=== PATIENT | male | born 1990 | race Caucasian/White ===

== ENCOUNTER 2020-07-29 22:08 | Emergency (ER) | payer SELFPAY ==
[2020-07-29] MEDS ORDERED: ONDANSETRON HCL INJ/PF 4 MG/2 ML SDV IV ONE (22:28)
[2020-07-29] MEDS ORDERED: NORMAL SALINE 1000 ML 1,000 ML IV ONE (22:29)
--- NOTE | 2020-07-29 22:30 | ER Document Report ---
ED General - General Chief Complaint: Abdominal Pain Stated Complaint: ABDOMINAL PAIN Time Seen by Provider: 07/29/20 22:20 Notes: Patient is a 30-year-old male that comes emergency department for chief complaint of abdominal pain. He comes by EMS. EMS reports that the brother actually called EMS after the patient was found acting strangely, the brother states that he believes the patient is "using Simona". Patient denies vomiting, fever, chest pain, headache, or any other complaints other than some generalized abdominal pain. He denies any daily medications, denies alcohol, smoking,, denies any surgeries. He does not answer when I asked him if he is using recreational drugs. Past Medical History - General Information source: Patient, Emergency Med Personnel - Social History Smoking Status: Unknown if Ever Smoked Lives with: Family Family History: Reviewed & Not Pertinent - Immunizations Immunizations up to date: Yes Hx Diphtheria, Pertussis, Tetanus Vaccination: Yes Review of Systems - Review of Systems Constitutional: No symptoms reported EENT: No symptoms reported Cardiovascular: No symptoms reported Respiratory: No symptoms reported Gastrointestinal: See HPI Genitourinary: No symptoms reported Male Genitourinary: No symptoms reported Musculoskeletal: No symptoms reported Skin: No symptoms reported Hematologic/Lymphatic: No symptoms reported Neurological/Psychological: See HPI Physical Exam - Notes Notes: GENERAL: Patient is alert, cooperative HEAD: Normocephalic, atraumatic. EYES: Very dilated pupils, equal, reactive, EOMs intact ENT: Oral mucosa moist, tongue midline. Oropharynx unremarkable. Airway patent. LUNGS: Clear to auscultation bilaterally, no wheezes, rales, or rhonchi. No respiratory distress. Non-tender chest wall. HEART: Regular rate and rhythm. No murmur ABDOMEN: Soft, non-tender. Non-distended. EXTREMITIES: Moves all 4 extremities spontaneously. No edema, normal radial and dorsalis pedis pulses bilaterally. No cyanosis. BACK: no cervical, thoracic, lumbar midline tenderness. No saddle anesthesia, normal distal neurovascular exam. Moves all extremities in full range of motion. NEUROLOGICAL: Alert and oriented x3. Normal speech. Cranial nerves II through XII grossly intact. Strength 5/5 in all extremities. PSYCH: Slightly anxious mood SKIN: Warm, dry, normal turgor. No rashes or lesions noted. Course - Re-evaluation Re-evalutation: 07/29/20 22:30 Patient is awake and cooperative, however he is frequently groaning, he has very dilated pupils, he looks around uncomfortably and nervously. Patient does appe ar to be under the influence of a recreational substance, reportedly "Simona" per his brother. Giving IV fluids, work-up pending, patient will be monitored. Unfortunately when nursing went back to check on patient and initiate treatment work-up patient had left the room, staff otherwise reported that patient was seated leaving through the ambulance bay. Unfortunately we looked around but were unable to find him. [employer] was called but unfortunately so far we have not been able to locate the patient. Discharge - Discharge Clinical Impression: Abdominal pain Qualifiers: Abdominal location: generalized Qualified Code(s): R10.84 - Generalized abdominal pain Disposition: ELOPED
--- NOTE | 2020-07-31 10:05 | EKG REPORT ---
SEVERITY:- ABNORMAL ECG - SINUS RHYTHM INCOMPLETE RIGHT BUNDLE BRANCH BLOCK : Confirmed by: Mirian Liriano MD 31-Jul-2020 10:04:49
== END 2020-07-29 23:00 | disposition left against medical advice (07) ==
LOC: ER 22:08
DX: R10.84 Generalized abdominal pain (principal); H57.04 Mydriasis; Z53.20 Procedure and treatment not carried out because of patient's decision for unspecified reasons
CPT/HCPCS: 93005; 93010; 99281

== ENCOUNTER 2020-07-31 08:19 | Emergency (ER) | payer SELFPAY ==
[2020-07-31 08:47] LABS: ABSOLUTE EOSINOPHILS # (AUTO) 0.1 10^3/uL (0.0-0.6); ABSOLUTE LYMPHOCYTES (AUTO) 1.2 10^3/uL (0.5-4.7); ABSOLUTE MONOCYTES (AUTO) 0.5 10^3/uL (0.1-1.4); ABSOLUTE NEUT (AUTO) 5.3 10^3/uL (1.7-8.2); BASOPHILS % (AUTO) 0.3 % (0-2); EOSINOPHILS % (AUTO) 0.9 % (0-6); HEMATOCRIT 42.8 % (37.9-51.0); HEMOGLOBIN 15.1 g/dL (13.5-17.0); LYMPHOCYTES % (AUTO) 16.8 % (13-45); MEAN CORPUSCULAR HEMOGLOBIN 31.9 pg (27.0-33.4); MEAN CORPUSCULAR HGB CONC 35.3 g/dL (32.0-36.0); MEAN CORPUSCULAR VOLUME 90 fl (80-97); MONOCYTES % (AUTO) 6.5 % (3-13); PLATELET COUNT 185 10^3/uL (150-450); RED BLOOD COUNT 4.74 10^6/uL (4.35-5.55); RED CELL DISTRIBUTION WIDTH 13.3 % (11.5-14.0); SEGMENTED NEUTROPHILS % (AUTO) 75.5 % (42-78); TOTAL CELLS COUNTED % (AUTO) 100 %; WHITE BLOOD COUNT 7.1 10^3/uL (4.0-10.5)
[2020-07-31 09:05] LABS: ALBUMIN 4.4 g/dL (3.5-5.0); ALKALINE PHOSPHATASE 61 U/L (38-126); ANION GAP 13 (5-19); ASPARTATE AMINO TRANSFERASE 74 U/L (17-59); BILIRUBIN,DIRECT 0.3 mg/dL (0.0-0.4); BILIRUBIN,TOTAL 0.7 mg/dL (0.2-1.3); BLOOD UREA NITROGEN 6 mg/dL (7-20); CALCIUM 9.3 mg/dL (8.4-10.2); CARBON DIOXIDE 25 mmol/L (22-30); CHLORIDE 100 mmol/L (98-107); GLUCOSE 99 mg/dL (75-110); TOTAL PROTEIN 6.8 g/dL (6.3-8.2)
[2020-07-31 09:06] LABS: ALCOHOL < 10 mg/dL (NONE DETECTED)
--- NOTE | 2020-07-31 09:06 | ER Document Report ---
ED General - General Chief Complaint: Altered Mental Status Stated Complaint: ALTERED MENTAL STATUS Time Seen by Provider: 07/31/20 08:40 Primary Care Provider: [facility] [Provider Group] - Follow up as needed ZIGGY LOPEZ DO [NO LOCAL MD] - Follow up in 3-5 days Mode of Arrival: Medic Information source: Patient - HPI Notes: 30-year-old male presents to the emergency room via EMS for AMS. Patient was found by local law enforcement outside, naked, laying face down and disorientated in the grass. He was incoherent when EMS came on arrival. Patient was administered 0.5 mg of Narcan without any improvement in his mental status. At the same time that EMS was at the scene, patient's brother filed a missing persons report and was concerned and speculated the patient had been doing some form of Simona. The brother states that the patient had rode a bike from [place] to [place] several days prior to arrival. Patient is complaining of generalized abdominal pain, he states he is having substernal chest pain, shortness of breath, nausea vomiting diarrhea that is become progressively worse over the last month, patient is unable to say the year, the month, who the president is but he is aware that he is at [facility]. Patient is a poor historian, when asked about any medical history he keeps saying male, denies any exposure to COVID, testing positive for COVID or having any cover testing done last 2 weeks. Patient denies any illicit drug use besides marijuana. Prior to coming to see patient, I did find this patient in the hallway naked with a sheet wrapped around him stating that he wanted to leave. Patient was instructed back to the room with guidance. Patient denies any fevers chills, abdominal pain, bowel or bladder dysfunction, saddle anesthesia, numbness or tingling down arms or legs. When asked him if he had hit his head or had fallen, patient states that he cannot remember he does not know how he got here and he does not remember the night. MEDICATIONS: I agree with the patient medications as charted by the RN. ALLERGIES: I agree with the allergies as charted by the RN. PAST MEDICAL HISTORY/PAST SURGICAL HISTORY: Reviewed and agree as charted by RN. SOCIAL HISTORY: Reviewed and agree as charted by RN. FAMILY HISTORY: No significant familial comorbid conditions directly related to patient complaint EXAM: Reviewed vital signs as charted by RN. PHYSICAL EXAMINATION:reviewed vital signs by RN GENERAL: Well-appearing, well-nourished and in no acute distress. HEAD: Atraumatic, normocephalic. EYES: Pupils equal round and reactive to light, extraocular movements intact, sclera anicteric, conjunctiva are normal. ENT: Nares patent, oropharynx clear without exudates. Moist mucous membranes. NECK: Normal range of motion, supple without lymphadenopathy LUNGS: Breath sounds clear to auscultation bilaterally and equal. No wheezes rales or rhonchi. HEART: Regular rate and rhythm without murmurs ABDOMEN: Soft, nontender, nondistended abdomen. No guarding, no rebound. No masses appreciated. Musculoskeletal: Normal range of motion, no pitting or edema. No cyanosis. NEUROLOGICAL: Cranial nerves grossly intact. Normal speech, normal gait. Normal sensory, motor exams PSYCH: Normal mood, normal affect. SKIN: Warm, Dry, normal turgor, no rashes or lesions noted. Past Medical History - General Information source: Patient - Social History Smoking Status: Unknown if Ever Smoked Family History: Reviewed & Not Pertinent - Immunizations Immunizations up to date: Yes Hx Diphtheria, Pertussis, Tetanus Vaccination: Yes Review of Systems - Review of Systems Constitutional: See HPI EENT: No symptoms reported Cardiovascular: No symptoms reported Respiratory: No symptoms reported Gastrointestinal: No symptoms reported Genitourinary: No symptoms reported Male Genitourinary: No symptoms reported Musculoskeletal: No symptoms reported Skin: No symptoms reported Hematologic/Lymphatic: No symptoms reported Neurological/Psychological: See HPI Physical Exam - Vital signs Vitals: Resp 15 07/31/20 08:28 Course - Re-evaluation Re-evalutation: 07/31/20 09:35 Afebrile vital stable and in no distress. CBC negative for leukocytosis, CMP negative for hepatic or renal dysfunction. Magnesium normal. Troponin less than 0.012. EKG heart rate 68, shows incomplete bundle branch, P axis 37, QRS [place] II, T [place] XIII. No STEMI. No ST segment elevations or changes. CK 1252, CRP 15.2, creatinine BUN normal. Patient given a liter of fluids. CT head negative for any acute findings per radiology. Urinalysis unremarkable, urine drug screen positive for marijuana only. 1200-nurse stated patient is c ompletely awake alert and orientated. Patient states he is feeling much better and did admit to using Simona. Due to patient's CK being elevated will give another liter of fluids. 1530- consulted with Dr. Santos, ER supervising attending that stated that since his renal function is normal, he can be discharged home. Advised to follow-up with primary care provider within the next 24 to 40 hours. Avoid any illicit drug use, avoid coffee or soda that might cause him to diurese more. Patient will remove the splint. Agree with plan of care. After performing a Medical Screening Examination, I estimate there is LOW risk for ACUTE GLAUCOMA, TEMPORAL ARTERITIS, MENINGITIS, INCRANIAL HEMORRHAGE, or ISCHEMIC STROKE thus I consider the discharge disposition reasonable. I have reevaluated this patient multiple times and no significant life threatening changes are noted. The patient and I have discussed the diagnosis and risks, and we agree with discharging home with close follow-up with the understanding that symptoms and presentations can change. We also discussed returning to the Emergency Department immediately if new or worsening symptoms occur. We have discussed the symptoms which are most concerning (e.g., changing or worsening symptoms, new numbness or weakness, vomiting, fever) that necessitate immediate return. - Vital Signs Vital signs: Temp Pulse Resp BP Pulse Ox 98.8 F 95 18 165/94 H 99 07/31/20 16:15 07/31/20 16:15 07/31/20 16:15 07/31/20 16:15 07/31/20 16:15 - Laboratory Result Diagrams: 07/31/20 08:29 07/31/20 08:29 Laboratory results interpreted by me: 07/31/20 07/31/20 07/31/20 08:29 08:29 09:12 BUN 6 L AST 74 H Creatine Kinase 1252 H C-Reactive Protein 15.2 H Urine Ketones 20 H 07/31/20 13:30 BUN AST Creatine Kinase 1008 H C-Reactive Protein 13.8 H Urine Ketones - EKG Interpretation by Me EKG shows normal: Sinus rhythm Additional EKG results interpreted by me: 07/31/20 17:20 EKG heart rate 68, shows incomplete bundle branch, P axis 37, QRS [place] II, T [place] XIII. No STEMI. No ST segment elevations or changes EKG Discharge - Discharge Clinical Impression: Dehydration, Illicit drug use Condition: Stable Disposition: HOME, SELF-CARE Instructions: Dehydration (OM) Additional Instructions: Your brought in today because you are found on the side of the road, EMS brought you in in your disorientated. CT of your head was normal. You is received 2 L of IV fluids to help with her dehydration. It is advised that you please follow-up with your primary care provider within the next 24 to 48 hours. Please avoid any illicit drug use. You were consulted by mental health today. Referrals: [facility] [Provider Group] - Follow up as needed ZIGGY LOPEZ DO [NO LOCAL MD] - Follow up in 3-5 days
[2020-07-31 09:20] LABS: C-REACTIVE PROTEIN 15.2 mg/L (<10.0)
[2020-07-31 09:32] LABS: APPEARANCE,URINE CLEAR; BILIRUBIN,URINE NEGATIVE (NEGATIVE); COLOR,URINE YELLOW; GLUCOSE, URINE NEGATIVE (NEGATIVE); KETONES,URINE 20 mg/dL (NEGATIVE); LEUKOCYTE ESTERASE,URINE NEGATIVE (NEGATIVE); NITRITE,URINE NEGATIVE (NEGATIVE); PROTEIN,URINE NEGATIVE (NEGATIVE); URINE SPECIFIC GRAVITY 1.004; UROBILINOGEN,URINE NEGATIVE mg/dL (<2.0)
[2020-07-31] MEDS ORDERED: NICOTINE 14 MG/24 HR PATCH.TD24 TD ONE (09:34)
[2020-07-31] MEDS ORDERED: NORMAL SALINE 1000 ML 1,000 ML IV ONE ×2 (09:35→11:44)
--- NOTE | 2020-07-31 09:41 | RADIOLOGY REPORT (SQ) ---
EXAM DESCRIPTION: CHEST SINGLE VIEW IMAGES COMPLETED DATE/TIME: 07/31/2020 9:32 am REASON FOR STUDY: ams COMPARISON: None. EXAM PARAMETERS: NUMBER OF VIEWS: One view. TECHNIQUE: Single frontal radiographic view of the chest acquired. RADIATION DOSE: NA LIMITATIONS: None. FINDINGS: LUNGS AND PLEURA: No opacities, masses or pneumothorax. No pleural effusion. MEDIASTINUM AND HILAR STRUCTURES: No masses. Contour normal. HEART AND VASCULAR STRUCTURES: Heart normal in size. Normal vasculature. BONES: No acute findings. HARDWARE: None in the chest. OTHER: No other significant finding. IMPRESSION: NO ACUTE RADIOGRAPHIC FINDING IN THE CHEST. TECHNICAL DOCUMENTATION: JOB ID: [id number] 2010 [employer]- All Rights Reserved Reading location - IP/workstation name: [email or web address]
--- NOTE | 2020-07-31 09:41 | RADIOLOGY REPORT (SQ) ---
EXAM DESCRIPTION: CT HEAD WITHOUT IMAGES COMPLETED DATE/TIME: 07/31/2020 9:29 am REASON FOR STUDY: AMS, found naked by police, unsure if head trauma COMPARISON: None. TECHNIQUE: Axial images acquired through the brain without intravenous contrast. Images reviewed wi th bone, brain and subdural windows. Additional sagittal and coronal reconstructions were generated. Images stored on PACS. All CT scanners at this facility use dose modulation, iterative reconstruction, and/or weight based d osing when appropriate to reduce radiation dose to as low as reasonably achievable (ALARA). [facility]: Dose Right [facility]: CareDose [facility]: Dose Right [facility]: Teradose 4D [facility]: Smart Celletra RADIATION DOSE: CT Rad equipment meets quality standard of care and radiation dose reduction techniq ues were employed. CTDIvol: 53.2 mGy. DLP: 1070 mGy-cm. mGy. LIMITATIONS: None. FINDINGS: VENTRICLES: Normal size and contour. CEREBRUM: No masses. No hemorrhage. No midline shift. No evidence for acute infarction. Normal gra y/white matter differentiation. No areas of low density in the white matter. CEREBELLUM: No masses. No hemorrhage. No alteration of density. No evidence for acute infarction. EXTRAAXIAL SPACES: No fluid collections. No masses. ORBITS AND GLOBE: No intra- or extraconal masses. Normal contour of globe without masses. CALVARIUM: No fracture. PARANASAL SINUSES: No fluid or mucosal thickening. SOFT TISSUES: No mass or hematoma. OTHER: No other significant finding. IMPRESSION: NORMAL BRAIN CT WITHOUT CONTRAST. EVIDENCE OF ACUTE STROKE: NO. COMMENT: Quality ID # [id number]: Final reports with documentation of one or more dose reduction techniques (e.g., Automated exposure control, adjustment of the mA and/or kV according to patient size, use of iterative reconstruction technique) TECHNICAL DOCUMENTATION: JOB ID: [id number] 2010 [employer]- All Rights Reserved Reading location - IP/workstation name: [email or web address]
[2020-07-31 09:48] LABS: URINE AMPHETAMINES SCREEN NEGATIVE; URINE BARBITURATES SCREEN NEGATIVE; URINE BENZODIAZEPINES SCREEN NEGATIVE; URINE COCAINE SCREEN NEGATIVE; URINE METHADONE SCREEN NEGATIVE; URINE PHENCYCLIDINE SCREEN NEGATIVE
[2020-07-31 09:49] LABS: URINE MARIJUANA (THC) SCREEN UNCONFIRMED POSITIVE
[2020-07-31 14:27] LABS: C-REACTIVE PROTEIN 13.8 mg/L (<10.0)
[2020-07-31 16:16] VITALS: BP 165/94
--- NOTE | 2020-07-31 18:55 | PSYCHOLOGICAL NOTE ---
Psych Note - Psych Note Date seen by psych provider: 07/31/20 Time seen by psych provider: 16:16 - Went to evaluate at 1616. Psych Note: Patient presented to the emergency department this morning via EMS after a witness called and law enforcement responded to a person laying naked outside. Law enforcement found patient lying on the ground, disoriented, in and out of consciousness, Narcan utilized with little immediate improvement. Law Enforcement then got missing person call via patient's brother while patient was being sent to hospital via EMS. The brother stated patient was last seen at the house at 0330. Brother said patient did Simona (MDMA), has a history of suicidal ideation, but no current concerns regarding suicidal ideation. Reportedly patient rode his bike from [place], [place] to [place], [place]. He was unsteady but easily redirected per medical documentation. He knew he was at [facility]. Attending ED Physician noted no concerns for suicidal or homicidal ideation and it was felt patient's presentation was likely a result of being under the infl uence. Urine Drug Screen was positive for cannabis. Simona or MDMA is not tested for. It does cause severe dehydration which according to patient's lab work suggests. He was administered fluids. At 1616 went to evaluate patient and Attending ED Nurse stated patient was already discharged. Clinical Presentation: Simona (MDMA) intoxication- would cause dehydration as well Impression/Plan: Patient was discharged prior to [facility] doing evaluation.
== END 2020-07-31 16:15 | disposition home or self-care (01) ==
LOC: ER 08:19
DX: E86.0 Dehydration (principal); F19.10 Other psychoactive substance abuse, uncomplicated; R41.82 Altered mental status, unspecified; R10.84 Generalized abdominal pain
CPT/HCPCS: 99285; 96360; 96361; 36415; 80307 ×2; 82550; 83735; 85025; 86140; 80053; 81001; 84484; 71045; 70450; J7030

== ENCOUNTER 2020-08-01 02:21 | Emergency (ER) | payer SELFPAY ==
[2020-08-01] MEDS ORDERED: ONDANSETRON HCL INJ/PF 4 MG/2 ML SDV IV ONE (02:39)
[2020-08-01] MEDS ORDERED: NORMAL SALINE 1000 ML 1,000 ML IV ONE ×2 (02:39→03:48)
--- NOTE | 2020-08-01 02:45 | ER Document Report ---
ED General - General Chief Complaint: Abdominal Pain Stated Complaint: ABDOMINAL PAIN Time Seen by Provider: 08/01/20 02:33 Primary Care Provider: [facility] [Provider Group] - 08/02/20 Notes: Patient is a 30-year-old male that comes to the emergency department for chief complaint of abdominal pain. He comes by EMS, EMS reports that a bystander noticed patient walking along the side of the road holding his abdomen and called 911. Patient denies vomiting, fever, chest pain. Patient admits to " using a hallucinogenic". Patient has been seen twice over the past 3 days and reported using Simona at that point. Patient denies any surgeries, diagnosed medical history, daily medications, or concerns other than his abdominal pain. He does admit to frequent alcohol use, denies history of pancreatitis. He denies smoking. - Related Data Allergies/Adverse Reactions: No Known Allergies Allergy (Unverified 08/01/20 02:36) Past Medical History - General Information source: Patient - Social History Smoking Status: Current Every Day Smoker Frequency of alcohol use: Occasional Drug Abuse: Heroin, Marijuana, Methamphetamine, Other Family History: Reviewed & Not Pertinent Patient has homicidal ideation: No - Immunizations Immunizations up to date: Yes Hx Diphtheria, Pertussis, Tetanus Vaccination: Yes Review of Systems - Review of Systems Constitutional: No symptoms reported EENT: No symptoms reported Cardiovascular: No symptoms reported Respiratory: No symptoms reported Gastrointestinal: See HPI Genitourinary: No symptoms reported Male Genitourinary: No symptoms reported Musculoskeletal: No symptoms reported Skin: No symptoms reported Hematologic/Lymphatic: No symptoms reported Neurological/Psychological: See HPI Physical Exam - Vital signs Vitals: Temp 97.6 F 08/01/20 02:27 - Notes Notes: GENERAL: Slightly disheveled, restless, however not in severe distress HEAD: Normocephalic, atraumatic. EYES: Pupils equal, round, and reactive to light. Extraocular movements intact. ENT: Oral mucosa very dry, tongue midline. Oropharynx unremarkable. Airway patent. NECK: Full range of motion. Supple. Trachea midline. No lymphadenopathy. LUNGS: Clear to auscultation bilaterally, no wheezes, rales, or rhonchi. No respiratory distress. Non-tender chest wall. HEART: Regular rate and rhythm. No murmur ABDOMEN: Minimal generalized abdominal tenderness, nonspecific, no guarding EXTREMITIES: Moves all 4 extremities spontaneously. No edema, normal radial and dorsalis pedis pulses bilaterally. No cyanosis. BACK: no cervical, thoracic, lumbar midline tenderness. No saddle anesthesia, normal distal neurovascular exam. Moves all extremities in full range of motion. NEUROLOGICAL: Alert and oriented x3. Normal speech. Cranial nerves II through X II grossly intact. Strength 5/5 in all extremities. PSYCH: Slightly restless, poor eye contact, but does respond to questions appropriately SKIN: Warm, dry, normal turgor. No rashes or lesions noted. Course - Re-evaluation Re-evalutation: Patient's abdomen has minimal generalized tenderness, nonspecific, no guarding. Patient is restless but is otherwise well-appearing. Patient was given Ativan, after this he did calm down. Patient was given lots of IV fluids, he does have dry mucous membranes. CK is in the 900s although this is actually decreased from prior. No renal injury, no myoglobin indicated in the urine, patient will be given additional IV fluids. CBC, chemistry, lipase unremarkable. Drug screen shows marijuana, alcohol is negative, unremarkable examination otherwise. We discussed with patient his details, I discussed options. Patient states that he does not think he wants to go back to [place], he states there are a lot of "bad things happening there". He states he is hoping to stay with his br other here in town. Patient states that he does want to get "in with psychiatry", he states that he has a history of schizophrenia and he is not on any medications. I asked him if he is suicidal, he specifically denies this, he denies any thoughts of hurting himself or anyone else. Patient does not appear to be responding to internal stimuli, he does not appear to be acutely psychotic. As result I do not feel patient meets IVC criteria. Patient also had a mental health evaluation a couple of days ago. However patient is asking if he can stay a couple of hours to be seen by the mental health team this morning, patient will remain here voluntary to have this performed instead of being discharged as I type him up beforehand. I discussed outpatient will need to drink a lot of fluids to avoid rhabdomyolysis. Patient states appreciation and agreement. - Vital Signs Vital signs: Temp Pulse Resp BP Pulse Ox 97.9 F 61 16 158/94 H 100 08/01/20 05:44 08/01/20 05:44 08/01/20 05:44 08/01/20 05:44 08/01/20 05:44 - Laboratory Result Diagrams: 08/01/20 02:41 08/01/20 02:41 Laboratory results interpreted by me: 08/01/20 08/01/20 02:41 02:41 Creatine Kinase 983 H Total Protein 6.2 L Urine Ketones 80 H Urine Urobilinogen 4.0 H Salicylates < 1.0 L Acetaminophen < 10 L - EKG Interpretation by Me Additional EKG results interpreted by me: EKG shows sinus rhythm at a rate of 63, QTc 414, normal axis, no T wave inversions or ST segment changes in consecutive leads Discharge - Discharge Clinical Impression: Dehydration Abdominal pain Qualifiers: Abdominal location: generalized Qualified Code(s): R10.84 - Generalized abdominal pain Depression Qualifiers: Depression Type: unspecified Qualified Code(s): F32.9 - Major depressive disorder, single episode, unspecified Condition: Stable Disposition: HOME, SELF-CARE Additional Instructions: Your work-up shows dehydration and you have been treated for this, your remaining evaluation is reassuring. You have expressed desires to have mental health evaluation and care, please follow-up with the referral for this. Return to the emergency department for any concerning symptoms including abdominal pain, vomiting, fever, or if something is not right. Referrals: [facility] [Provider Group] - 08/02/20
[2020-08-01 03:17] LABS: URINE AMPHETAMINES SCREEN NEGATIVE; URINE BARBITURATES SCREEN NEGATIVE; URINE BENZODIAZEPINES SCREEN NEGATIVE; URINE COCAINE SCREEN NEGATIVE; URINE METHADONE SCREEN NEGATIVE; URINE PHENCYCLIDINE SCREEN NEGATIVE
[2020-08-01 03:33] LABS: APPEARANCE,URINE CLEAR; BILIRUBIN,URINE NEGATIVE (NEGATIVE); COLOR,URINE YELLOW; GLUCOSE, URINE NEGATIVE (NEGATIVE); KETONES,URINE 80 mg/dL (NEGATIVE); LEUKOCYTE ESTERASE,URINE NEGATIVE (NEGATIVE); NITRITE,URINE NEGATIVE (NEGATIVE); PROTEIN,URINE NEGATIVE (NEGATIVE); URINE SPECIFIC GRAVITY 1.021
[2020-08-01 03:34] LABS: URINE MARIJUANA (THC) SCREEN UNCONFIRMED POSITIVE
[2020-08-01 03:35] LABS: ABSOLUTE EOSINOPHILS # (AUTO) 0.1 10^3/uL (0.0-0.6); ABSOLUTE LYMPHOCYTES (AUTO) 1.9 10^3/uL (0.5-4.7); ABSOLUTE MONOCYTES (AUTO) 0.9 10^3/uL (0.1-1.4); ABSOLUTE NEUT (AUTO) 6.6 10^3/uL (1.7-8.2); BASOPHILS % (AUTO) 0.4 % (0-2); EOSINOPHILS % (AUTO) 0.8 % (0-6); HEMATOCRIT 42.6 % (37.9-51.0); HEMOGLOBIN 14.6 g/dL (13.5-17.0); LYMPHOCYTES % (AUTO) 20.4 % (13-45); MEAN CORPUSCULAR HEMOGLOBIN 31.5 pg (27.0-33.4); MEAN CORPUSCULAR HGB CONC 34.2 g/dL (32.0-36.0); MEAN CORPUSCULAR VOLUME 92 fl (80-97); MONOCYTES % (AUTO) 8.9 % (3-13); PLATELET COUNT 183 10^3/uL (150-450); RED BLOOD COUNT 4.63 10^6/uL (4.35-5.55); RED CELL DISTRIBUTION WIDTH 13.3 % (11.5-14.0); SEGMENTED NEUTROPHILS % (AUTO) 69.5 % (42-78); TOTAL CELLS COUNTED % (AUTO) 100 %; WHITE BLOOD COUNT 9.5 10^3/uL (4.0-10.5)
[2020-08-01 03:42] LABS: ALBUMIN 4.1 g/dL (3.5-5.0); ANION GAP 9 (5-19); ASPARTATE AMINO TRANSFERASE 59 U/L (17-59); BILIRUBIN,DIRECT 0.3 mg/dL (0.0-0.4); BILIRUBIN,TOTAL 0.9 mg/dL (0.2-1.3); BLOOD UREA NITROGEN 8 mg/dL (7-20); CARBON DIOXIDE 27 mmol/L (22-30); CHLORIDE 104 mmol/L (98-107); CREATINE KINASE 983 U/L (55-170); GLUCOSE 91 mg/dL (75-110); NEONATAL BILIRUBIN RESULT 0.6 mg/dL (0.1-1.1); POTASSIUM 4.1 mmol/L (3.6-5.0); TOTAL PROTEIN 6.2 g/dL (6.3-8.2)
[2020-08-01 03:43] LABS: ALKALINE PHOSPHATASE 54 U/L (38-126); CALCIUM 9.2 mg/dL (8.4-10.2)
[2020-08-01 03:44] LABS: ACETAMINOPHEN < 10 ug/mL (10-30); ALCOHOL < 10 mg/dL (NONE DETECTED); SALICYLATE < 1.0 mg/dL (2.0-20.0)
[2020-08-01] MEDS ORDERED: LORAZEPAM INJ 2 MG/1 ML VIAL IV ONE (04:01)
[2020-08-01 05:44] VITALS: BP 158/94
--- NOTE | 2020-08-01 09:10 | EKG REPORT ---
SEVERITY:- NORMAL ECG - SINUS RHYTHM : Confirmed by: Mirian Liriano MD 01-Aug-2020 09:09:30
== END 2020-08-01 07:00 | disposition home or self-care (01) ==
LOC: ER 02:21
DX: E86.0 Dehydration (principal); R10.84 Generalized abdominal pain; F32.9 Major depressive disorder, single episode, unspecified; F17.200 Nicotine dependence, unspecified, uncomplicated; F19.10 Other psychoactive substance abuse, uncomplicated; F12.10 Cannabis abuse, uncomplicated; F11.10 Opioid abuse, uncomplicated
CPT/HCPCS: 93005; 99284; 96361; 96374; 96375; 36415; 80307 ×4; 82550; 83690; 85025; 80053; 81001; 93010; J2060; J2405; J7030

== ENCOUNTER 2020-08-01 16:27 | Emergency (ER) | payer SELFPAY ==
--- NOTE | 2020-08-01 17:22 | ER Document Report ---
ED General - General Chief Complaint: Medical Clearance Stated Complaint: MEDICAL CLEARANCE Time Seen by Provider: 08/01/20 17:14 Notes: CHIEF COMPLAINT: Medical clearance for [facility] HPI: 30-year-old male presenting to be medically cleared to go to [facility] for substance abuse. Patient states that he has only been using marijuana and cigarettes but was brought in again by friends today because they say he has been using meth and Simona. Patient denies any physical complaints today. Patient states he would just like to be medically cleared so he can go to [facility] ROS: See HPI - all other systems were reviewed and are otherwise negative Constitutional: no fever Eyes: no drainage, no blurred vision ENT: no runny nose, no sore throat Cardiovascular: no chest pain Resp: no SOB, no cough GI: no vomiting, no diarrhea, no abdominal pain : no dysuria Integumentary: no rash Allergy: no hives Musculoskeletal: no extremity pain or swelling Neurological: no numbness/tingling, no weakness MEDICATIONS: I agree with the patient medications as charted by the RN. ALLERGIES: I agree with the allergies as charted by the RN. PAST MEDICAL HISTORY/PAST SURGICAL HISTORY: Reviewed and agree as charted by RN. SOCIAL HISTORY: Reviewed and agree as charted by RN. FAMILY HISTORY: No significant familial comorbid conditions directly related to patient complaint EXAM: Reviewed vital signs as charted by RN. CONSTITUTIONAL: Alert and oriented and responds appropriately to questions. Well-appearing; well-nourished HEAD: Normocephalic; atraumatic EYES: PERRL; Conjunctivae clear, sclerae non-icteric ENT: normal nose; no rhinorrhea; moist mucous membranes; pharynx without lesions noted, no uvula edema or deviation, no tonsillar hypertrophy, phonation normal NECK: Supple without meningismus; non-tender; no cervical lymphadenopathy, no masses CARD: RRR; no murmurs, no clicks, no rubs, no gallops; symmetric distal pulses RESP: Normal chest excursion without splinting or tachypnea; breath sounds clear and equal bilaterally; no wheezes, no rhonchi, no rales, pulse oximetry 98% on room air not hypoxic ABD/GI: Normal bowel sounds; non-distended; soft, non-tender, no rebound, no guarding; no palpable organomegaly or masses. BACK: The back appears normal and is non-tender to palpation, there is no CVA tenderness EXT: Normal ROM in all joints; non-tender to palpation; no cyanosis, no effusions, no edema SKIN: Normal color for age and race; warm; dry; good turgor; no acute lesions noted NEURO: Moves all extremities equally; Motor and sensory function intact PSYCH: The patient's mood and manner are appropriate. Grooming and personal h ygiene are appropriate. Patient is answering all questions appropriately. Patient gait is normal. Patient is clinically sober and not visibly intoxicated at this time. MDM: 30-year-old male presenting for medical clearance for [facility]. Patient admits to using marijuana denies using methamphetamine or Simona. Patient does acknowledge that he wants to go to [facility] for substance abuse treatment. They are apparently holding a bed for him pending medical clearance. Patient has been here 3 times in the past 3 days. He was here last night and had lab work drawn at 4 AM. He denies using any alcohol or drugs other than marijuana today. His drug screen this morning at 4 AM was only positive for marijuana. Patient's alcohol on last night's visit and previous visits was negative. At this time I believe patient is medically cleared discussed with Dr. Santos. he may proceed to [facility] - Related Data Allergies/Adverse Reactions: No Known Allergies Allergy (Verified 08/01/20 17:19) Past Medical History - Social History Smoking Status: Current Every Day Smoker Family History: Reviewed & Not Pertinent - Immunizations Immunizations up to date: Yes Hx Diphtheria, Pertussis, Tetanus Vaccination: Yes Discharge - Discharge Clinical Impression: Medical clearance for psychiatric admission, Marijuana abuse Condition: Stable Disposition: HOME, SELF-CARE Additional Instructions: Proceed directly to [facility] for further evaluation and treatment of any substance abuse issues
[2020-08-01 17:33] VITALS: BP 184/102
== END 2020-08-01 17:31 | disposition home or self-care (01) ==
LOC: ER 16:27
DX: Z00.8 Encounter for other general examination (principal); F19.10 Other psychoactive substance abuse, uncomplicated; F12.10 Cannabis abuse, uncomplicated; F17.200 Nicotine dependence, unspecified, uncomplicated
CPT/HCPCS: 99283

== ENCOUNTER 2020-08-04 20:11 | Emergency (ER) | payer SELFPAY ==
[2020-08-04 20:16] VITALS: BP 153/110
--- NOTE | 2020-08-04 20:27 | ER Document Report ---
ED Medical Screen (RME) - General Stated Complaint: ABDOMINAL PAIN Time Seen by Provider: 08/04/20 20:20 - HPI Notes: 08/04/20 20:26 30-year-old male to the emergency department via EMS with complaints of persistent abdominal pain for the past week and right thigh and groin pain for several days. He is unable to give a lot of history. He denies any fevers, chills, nausea, vomiting. He states he has not gone to the bathroom in a while - both urine and stool. He was seen here on August 01 for clearance to [place] for alcohol abuse and then again for abdominal pain. He denies any SI, HI, hallucinations. He states he has not been drinking. He states he is not sure if he is been using any drugs. I performed a brief medical screening exam on the patient determined that the patient needs further evaluation and management by main side provider. I have placed initial orders to help expedite care. - Related Data Allergies/Adverse Reactions: No Known Allergies Allergy (Verified 08/04/20 20:19) Past Medical History - Immunizations Immunizations up to date: Yes Hx Diphtheria, Pertussis, Tetanus Vaccination: Yes Physical Exam - Vital signs Vitals: Temp Pulse Resp BP Pulse Ox 97.9 F 85 20 153/110 H 98 08/04/20 20:15 08/04/20 20:15 08/04/20 20:15 08/04/20 20:15 08/04/20 20:15 Course - Vital Signs Vital signs: Temp Pulse Resp BP Pulse Ox 97.9 F 85 20 153/110 H 98 08/04/20 20:15 08/04/20 20:15 08/04/20 20:15 08/04/20 20:15 08/04/20 20:15
[2020-08-04 21:11] LABS: ABSOLUTE EOSINOPHILS # (AUTO) 0.1 10^3/uL (0.0-0.6); ABSOLUTE MONOCYTES (AUTO) 0.9 10^3/uL (0.1-1.4); ABSOLUTE NEUT (AUTO) 6.2 10^3/uL (1.7-8.2); BASOPHILS % (AUTO) 0.4 % (0-2); EOSINOPHILS % (AUTO) 1.4 % (0-6); HEMATOCRIT 44.5 % (37.9-51.0); HEMOGLOBIN 15.4 g/dL (13.5-17.0); LYMPHOCYTES % (AUTO) 21.5 % (13-45); MEAN CORPUSCULAR HEMOGLOBIN 31.7 pg (27.0-33.4); MEAN CORPUSCULAR HGB CONC 34.6 g/dL (32.0-36.0); MEAN CORPUSCULAR VOLUME 92 fl (80-97); MONOCYTES % (AUTO) 9.4 % (3-13); PLATELET COUNT 187 10^3/uL (150-450); RED BLOOD COUNT 4.87 10^6/uL (4.35-5.55); RED CELL DISTRIBUTION WIDTH 13.6 % (11.5-14.0); SEGMENTED NEUTROPHILS % (AUTO) 67.3 % (42-78); TOTAL CELLS COUNTED % (AUTO) 100 %; WHITE BLOOD COUNT 9.2 10^3/uL (4.0-10.5)
[2020-08-04 21:23] LABS: APPEARANCE,URINE CLOUDY; BILIRUBIN,URINE SMALL (NEGATIVE); COLOR,URINE AMBER; GLUCOSE, URINE NEGATIVE (NEGATIVE); KETONES,URINE 80 mg/dL (NEGATIVE); LEUKOCYTE ESTERASE,URINE NEGATIVE (NEGATIVE); NITRITE,URINE NEGATIVE (NEGATIVE); PROTEIN,URINE 100 mg/dL (NEGATIVE); URINE SPECIFIC GRAVITY 1.033
[2020-08-04 21:24] LABS: ALBUMIN 4.5 g/dL (3.5-5.0); ALKALINE PHOSPHATASE 62 U/L (38-126); ANION GAP 17 (5-19); ASPARTATE AMINO TRANSFERASE 54 U/L (17-59); BILIRUBIN,DIRECT 0.3 mg/dL (0.0-0.4); BLOOD UREA NITROGEN 14 mg/dL (7-20); CALCIUM 9.7 mg/dL (8.4-10.2); CARBON DIOXIDE 23 mmol/L (22-30); CHLORIDE 99 mmol/L (98-107); GLUCOSE 82 mg/dL (75-110); POTASSIUM 4.2 mmol/L (3.6-5.0); TOTAL PROTEIN 6.8 g/dL (6.3-8.2)
[2020-08-04 21:25] LABS: ACETAMINOPHEN < 10 ug/mL (10-30); ALCOHOL < 10 mg/dL (NONE DETECTED); SALICYLATE < 1.0 mg/dL (2.0-20.0)
[2020-08-04 21:40] LABS: URINE AMPHETAMINES SCREEN NEGATIVE; URINE BARBITURATES SCREEN NEGATIVE; URINE BENZODIAZEPINES SCREEN NEGATIVE; URINE COCAINE SCREEN NEGATIVE; URINE MARIJUANA (THC) SCREEN UNCONFIRMED POSITIVE; URINE METHADONE SCREEN NEGATIVE; URINE PHENCYCLIDINE SCREEN NEGATIVE
== END 2020-08-05 02:10 | disposition left against medical advice (07) ==
LOC: ER 20:11
DX: R10.30 Lower abdominal pain, unspecified (principal); M79.651 Pain in right thigh; Z53.20 Procedure and treatment not carried out because of patient's decision for unspecified reasons
CPT/HCPCS: 36415; 80053; 80307; 81001; 83690; 85025; 99281

== ENCOUNTER 2020-08-05 13:46 | Emergency (ER) | payer SELFPAY ==
[2020-08-05 14:31] LABS: ABSOLUTE EOSINOPHILS # (AUTO) 0.1 10^3/uL (0.0-0.6); ABSOLUTE LYMPHOCYTES (AUTO) 1.8 10^3/uL (0.5-4.7); ABSOLUTE MONOCYTES (AUTO) 0.8 10^3/uL (0.1-1.4); ABSOLUTE NEUT (AUTO) 4.2 10^3/uL (1.7-8.2); BASOPHILS % (AUTO) 0.6 % (0-2); EOSINOPHILS % (AUTO) 1.6 % (0-6); HEMATOCRIT 41.8 % (37.9-51.0); HEMOGLOBIN 14.8 g/dL (13.5-17.0); LYMPHOCYTES % (AUTO) 25.7 % (13-45); MEAN CORPUSCULAR HEMOGLOBIN 32.4 pg (27.0-33.4); MEAN CORPUSCULAR HGB CONC 35.5 g/dL (32.0-36.0); MEAN CORPUSCULAR VOLUME 91 fl (80-97); MONOCYTES % (AUTO) 11.2 % (3-13); PLATELET COUNT 174 10^3/uL (150-450); RED BLOOD COUNT 4.57 10^6/uL (4.35-5.55); RED CELL DISTRIBUTION WIDTH 13.5 % (11.5-14.0); SEGMENTED NEUTROPHILS % (AUTO) 60.9 % (42-78); TOTAL CELLS COUNTED % (AUTO) 100 %; WHITE BLOOD COUNT 6.9 10^3/uL (4.0-10.5)
[2020-08-05 14:34] LABS: ALKALINE PHOSPHATASE 58 U/L (38-126); ANION GAP 9 (5-19); ASPARTATE AMINO TRANSFERASE 43 U/L (17-59); BILIRUBIN,DIRECT 0.3 mg/dL (0.0-0.4); BILIRUBIN,TOTAL 0.8 mg/dL (0.2-1.3); BLOOD UREA NITROGEN 11 mg/dL (7-20); CALCIUM 9.3 mg/dL (8.4-10.2); CARBON DIOXIDE 28 mmol/L (22-30); CHLORIDE 101 mmol/L (98-107); GLUCOSE 90 mg/dL (75-110); POTASSIUM 3.8 mmol/L (3.6-5.0); TOTAL PROTEIN 6.4 g/dL (6.3-8.2)
[2020-08-05 14:35] LABS: ACETAMINOPHEN < 10 ug/mL (10-30); ALCOHOL < 10 mg/dL (NONE DETECTED); SALICYLATE < 1.0 mg/dL (2.0-20.0)
--- NOTE | 2020-08-05 14:47 | ER Document Report ---
ED General - General Chief Complaint: Altered Mental Status Stated Complaint: POSSIBLE DRUG ABUSE Time Seen by Provider: 08/05/20 14:46 - HPI Notes: 30-year-old male presents after he was found sleeping outside, per nursing/EMS report he was found sleeping outside the police and was hard to awaken therefore brought to the emergency department. Patient states that last night he had to sleep under the bridge. He woke up this morning, walked a short distance, then passed out on the street. He states "they treated me like an animal" but will not expound upon this. He reports intermittent drug use, not regularly, states that he really does not have enough money to buy drugs or alcohol. He states he is interested in getting treatment. He has been to [facility] before. He currently denies complaints. - Related Data Allergies/Adverse Reactions: No Known Allergies Allergy (Verified 08/04/20 20:19) Past Medical History - General Information source: Patient - Social History Smoking Status: Current Every Day Smoker Frequency of alcohol use: None Drug Abuse: Heroin, Marijuana, Other Family History: Reviewed & Not Pertinent - Immunizations Immunizations up to date: Yes Hx Diphtheria, Pertussis, Tetanus Vaccination: Yes Review of Systems - Review of Systems Constitutional: No symptoms reported EENT: No symptoms reported Cardiovascular: No symptoms reported Respiratory: No symptoms reported Gastrointestinal: No symptoms reported Genitourinary: No symptoms reported Male Genitourinary: No symptoms reported Musculoskeletal: No symptoms reported Skin: No symptoms reported Hematologic/Lymphatic: No symptoms reported Neurological/Psychological: No symptoms reported Physical Exam - Vital signs Vitals: Pulse Ox 99 08/05/20 13:53 - General General appearance: Appears well, Alert In distress: None - HEENT Head: Normocephalic, Atraumatic Extraocular movements intact: Yes Pupils: PERRL - Respiratory Breath sounds: Normal - Cardiovascular Rhythm: Regular Heart sounds: Normal auscultation - Abdominal Tenderness: Nontender - Extremities General upper extremity: Normal ROM General lower extremity: Normal ROM - Neurological Neuro grossly intact: Yes Cognition: Normal Orientation: AAOx4 - Psychological Associated symptoms: Flat affect - Skin Skin Temperature: Warm Course - Re-evaluation Re-evalutation: 30-year-old male here via EMS after he was found sleeping outside and was reportedly hard to arouse. On exam he is awake, alert and oriented. He voices no complaints currently. Physical exam is otherwise unremarkable aside from a flat affect. He is hemodynamically stable. He admits to intermittent drug use. He does not appear to be intoxicated at this point. Labs were obtained prior to evaluation. Behavioral health has been involved given his reported desire to receive treatment and that he has been here multiple times recently with psych consult placed however was never formally obtained. 08/05/20 15:53 No leukocytosis or left shift. No acute anemia. Electrolytes within normal limits. Creatinine within normal limits. APAP, salicylates and ethanol negative. Patient medically cleared at this time. Pending behavioral health evaluation. Patient to be signed out pending this. - Vital Signs Vital signs: Temp Pulse Resp BP Pulse Ox 98.5 F 60 16 155/88 H 100 08/05/20 14:00 08/05/20 14:00 08/05/20 14:01 08/05/20 15:01 08/05/20 15:01 - Laboratory Result Diagrams: 08/05/20 14:00 08/05/20 14:00 Laboratory results interpreted by me: 08/05/20 14:00 Salicylates < 1.0 L Acetaminophen < 10 L - EKG Interpretation by Me Additional EKG results interpreted by me: EKG is interpreted by me. Sinus rhythm, rate 60. Narrow QRS, QTC within normal limits. No ST segment elevation. Appears similar to previous. Discharge - Discharge Clinical Impression: Homelessness Disposition: OTHER
[2020-08-05 16:24] LABS: APPEARANCE,URINE CLEAR; BILIRUBIN,URINE NEGATIVE (NEGATIVE); COLOR,URINE YELLOW; GLUCOSE, URINE NEGATIVE (NEGATIVE); KETONES,URINE 20 mg/dL (NEGATIVE); LEUKOCYTE ESTERASE,URINE NEGATIVE (NEGATIVE); NITRITE,URINE NEGATIVE (NEGATIVE); PROTEIN,URINE NEGATIVE (NEGATIVE)
[2020-08-05 16:50] LABS: URINE AMPHETAMINES SCREEN NEGATIVE; URINE BARBITURATES SCREEN NEGATIVE; URINE BENZODIAZEPINES SCREEN NEGATIVE; URINE COCAINE SCREEN NEGATIVE; URINE METHADONE SCREEN NEGATIVE; URINE PHENCYCLIDINE SCREEN NEGATIVE
[2020-08-05 16:52] LABS: URINE MARIJUANA (THC) SCREEN UNCONFIRMED POSITIVE
--- NOTE | 2020-08-05 17:25 | PSYCHOLOGICAL NOTE ---
Psych Note - Psych Note Date seen by psych provider: 08/05/20 Time seen by psych provider: 16:19 - Evaluation with patient from [id number]. Contacted [facility] at 1708. Psych Note: Patient is a 30 year old male who presented to the emergency department this afternoon via EMS after being found by police sleeping on the street, they tried to wake him without success, he admitted to intermittent drug use and stated he had been to [facility] previously. Attempted evaluation with patient from [id number]. He was sleeping. He woke up with name said loudly. He was able to identify he is at [facility]. He said he could not remember the last time he used drugs and what it was. He admitted he was at [facility] previously. Later when this clinician went back to make patient aware he could not go to [facility] until 72 hours after his discharge which was 08/03/2020 and then they would screen him to determine if they could help him. He was encouraged to contact his brother to see if he could stay with him for a night or two. Patient corrected this clinician and stated it is his [id number]. He stated he would try to call him. At [address] [facility]. Spoke to Lacey. She stated patient was at their facility 08/01/2020 (brother brought him saying patient was acting strange and he was worried about him, WINIFRED was 0, drug screen positive for cannabis only) and he discharged AMA on 08/03/2020. She noted he was administered medication and wanted to leave right away. She stated they cannot take him back as it has to be 72 hours since his discharge. Patient was alert and oriented to self, person, place, time and situation. Mood was euthymic with congruent affect. He denied current suicidal and homicidal ideation. Patient did not appear to be responding to internal stimuli as evidenced by fair eye contact and answering questions appropriately when ad dressed. Thought processes seemed linear and organized. Conversational speech was within normal limits for rate, tone and prosody. Intellectual abilities are estimated to be average. Insight, judgment and impulse control were fair as evidenced by saying he would reach out to his [id number] for assistance. Clinical Presentation: Cannabis Use Disorder Fatigue/Tiredness Recent drug use (seen in Emergency Department this past weekend where brother said patient did Simona, patient admitted to intermittent drug use Impression/Plan: Patient is cleared from acute psychiatric services. He denied current suicidal and homicidal ideation. No observed psychosis that interfered with ability to express self, wants/needs, and he answered questions appropriat aditi when addressed. Spoke to [facility]. Patient was just at their facility 08/01/2020-08/03/2020 when he left AMA. He cannot be accepted back to their facility until after 72 hours from last discharge and even then has to go through screening and since he left AMA may not be considered but could still be screened. This was all explained to patient and he said he understood. Provided patient with the economic resource sheet which highlighted both mobile crisis numbers, [facility] for outpatient dual diagnosis treatment, and the local homeless intermediate. Encouraged patient to reach out to his brother whom he corrected as [id number] for a place to stay tonight or a couple nights. Patient said he would reach out to his [id number]. Consulted with Dr. Griffith regarding the management and care of patient. ED Physician in agreement with recommendations.
--- NOTE | 2020-08-05 19:42 | ER Document Report ---
Doctor's Note Notes: 08/05/20 19:39 Patient was signed out to me. Behavioral health saw the patient. They stated that he left AMA from [facility] facility less than 72 hours ago so the facility is unable to take him back at this time. He is not suicidal or homicidal. Patient is not a risk to himself. They recommended that he have outpatient management and gave him resources. I personally evaluated the patient. He is alert and oriented to person place and time. Patient is sitting up. He does not appear in acute distress. He is breathing easy on room air. He moves all extremities. Skin appears normal. No obvious signs of trauma. Patient is denying any complaints at this time. Patient is agreeable to the plan for outpatient follow-up. He was ambulated in the ED. His vital signs are stable. Patient is mentating normally at this time. He will be discharged home for outpatient follow-up. Strict return precautions provided.
[2020-08-05 19:47] VITALS: BP 144/99
--- NOTE | 2020-08-05 21:52 | EKG REPORT ---
SEVERITY:- ABNORMAL ECG - SINUS RHYTHM NONSPECIFIC INTRAVENTRICULAR CONDUCTION DELAY : Confirmed by: Moise Smart 05-Aug-2020 21:51:21
== END 2020-08-05 19:47 | disposition other institution (70) ==
LOC: ER 13:46
DX: Z59.0 Homelessness (principal); R41.82 Altered mental status, unspecified; F17.200 Nicotine dependence, unspecified, uncomplicated
CPT/HCPCS: 36415; 80053; 80307; 81001; 85025; 93005; 93010; 99284

== ENCOUNTER 2020-08-13 13:55 | Emergency (ER) | payer SELFPAY ==
[2020-08-13 14:20] VITALS: BP 131/87
[2020-08-13 14:34] LABS: ABSOLUTE BASOPHILS # (AUTO) 0.1 10^3/uL (0.0-0.2); ABSOLUTE LYMPHOCYTES (AUTO) 1.8 10^3/uL (0.5-4.7); ABSOLUTE MONOCYTES (AUTO) 0.7 10^3/uL (0.1-1.4); ABSOLUTE NEUT (AUTO) 4.6 10^3/uL (1.7-8.2); BASOPHILS % (AUTO) 0.7 % (0-2); EOSINOPHILS % (AUTO) 0.7 % (0-6); HEMATOCRIT 46.6 % (37.9-51.0); HEMOGLOBIN 16.4 g/dL (13.5-17.0); LYMPHOCYTES % (AUTO) 24.4 % (13-45); MEAN CORPUSCULAR HEMOGLOBIN 32.1 pg (27.0-33.4); MEAN CORPUSCULAR HGB CONC 35.1 g/dL (32.0-36.0); MEAN CORPUSCULAR VOLUME 92 fl (80-97); MONOCYTES % (AUTO) 10.1 % (3-13); PLATELET COUNT 234 10^3/uL (150-450); RED BLOOD COUNT 5.09 10^6/uL (4.35-5.55); RED CELL DISTRIBUTION WIDTH 13.9 % (11.5-14.0); SEGMENTED NEUTROPHILS % (AUTO) 64.1 % (42-78); TOTAL CELLS COUNTED % (AUTO) 100 %; WHITE BLOOD COUNT 7.2 10^3/uL (4.0-10.5)
[2020-08-13 14:52] LABS: APPEARANCE,URINE SLIGHTLY-CLOUDY; BILIRUBIN,URINE NEGATIVE (NEGATIVE); COLOR,URINE YELLOW; GLUCOSE, URINE NEGATIVE (NEGATIVE); KETONES,URINE NEGATIVE (NEGATIVE); LEUKOCYTE ESTERASE,URINE NEGATIVE (NEGATIVE); NITRITE,URINE NEGATIVE (NEGATIVE); PROTEIN,URINE NEGATIVE (NEGATIVE); URINE SPECIFIC GRAVITY 1.018
[2020-08-13 14:54] LABS: ALBUMIN 4.5 g/dL (3.5-5.0); ALKALINE PHOSPHATASE 53 U/L (38-126); ANION GAP 10 (5-19); ASPARTATE AMINO TRANSFERASE 19 U/L (17-59); BILIRUBIN,DIRECT 0.3 mg/dL (0.0-0.4); BILIRUBIN,TOTAL 0.5 mg/dL (0.2-1.3); BLOOD UREA NITROGEN 9 mg/dL (7-20); CALCIUM 10.2 mg/dL (8.4-10.2); CARBON DIOXIDE 27 mmol/L (22-30); CHLORIDE 103 mmol/L (98-107); GLUCOSE 96 mg/dL (75-110); POTASSIUM 4.1 mmol/L (3.6-5.0); TOTAL PROTEIN 7.2 g/dL (6.3-8.2)
[2020-08-13 14:55] LABS: ACETAMINOPHEN < 10 ug/mL (10-30); ALCOHOL < 10 mg/dL (NONE DETECTED); SALICYLATE < 1.0 mg/dL (2.0-20.0)
[2020-08-13 15:07] LABS: URINE AMPHETAMINES SCREEN NEGATIVE; URINE BARBITURATES SCREEN NEGATIVE; URINE BENZODIAZEPINES SCREEN NEGATIVE; URINE COCAINE SCREEN NEGATIVE; URINE MARIJUANA (THC) SCREEN UNCONFIRMED POSITIVE; URINE METHADONE SCREEN NEGATIVE; URINE PHENCYCLIDINE SCREEN NEGATIVE
--- NOTE | 2020-08-13 15:22 | ER Document Report ---
ED Psych Disorder / Suicide <KEVIN RIVER - Last Filed: 08/13/20 16:48> <LIV HDZ - Last Filed: 08/13/20 18:18> - General Chief Complaint: Suicidal Ideation Stated Complaint: SUICIDAL IDEATION Time Seen by Provider: 08/13/20 14:03 Primary Care Provider: [facility] [Provider Group] - Follow up as needed (Outpatient dual diagnosis mental health and substance abuse treatment. To initiate services walk in Sunday-Sunday 8:00AM-4:30PM.) [facility] [Outside] - Follow up as needed (Local [facility] Inpatient 3-5 day facility. You can self refer via phone call ([phone]) or walk in ([facility], [place], [address]). You can also use mobile crisis to assist you. You must stay the entire duration to benefit from the treatment.) [facility] [Outside] - Follow up as needed (For Crisis, Talk Therapy, and linkage to other services/supports.) [facility] [Outside] - Follow up as needed (For Crisis, Talk Therapy, and linkage to other services/supports.) Notes: Patient is a 30-year-old male who presents emergency department with a chief c omplaint of suicidal ideation. Patient states that he has felt suicidal on and off for the past month. States that he also has some abdominal pain that has been going on for the past month. States that he does not have bowel movements every day. Denies any nausea or vomiting. Patient verbalizes plans to cut himself, but has not cut himself. Patient does have old scars noted. (LIV VAZQUEZ ACE) - Related Data Allergies/Adverse Reactions: No Known Allergies Allergy (Verified 08/04/20 20:19) Past Medical History - General Information source: Patient - Social History Smoking Status: Current Every Day Smoker Chew tobacco use (# tins/day): No Frequency of alcohol use: Occasional Drug Abuse: Other Family History: Reviewed & Not Pertinent Patient has homicidal ideation: No - Immunizations Immunizations up to date: Yes Hx Diphtheria, Pertussis, Tetanus Vaccination: Yes <LIV HDZ - Last Filed: 08/13/20 18:18> Review of Systems <LIV HDZ - Last Filed: 08/13/20 18:18> - Review of Systems Notes: REVIEW OF SYSTEMS: CONSTITUTIONAL : Denies recent illness. Denies recent unintentional weight loss. Denies fever, chills, or sweats. EENT: Denies eye, ear, throat, or mouth pain, discharge, or symptoms. Denies nasal or sinus congestion. CARDIOVASCULAR: Denies chest pain. RESPIRATORY: Denies shortness of breath, cough, congestion, difficulty breathing, or wheezing. GASTROINTESTINAL: See HPI. GENITOURINARY: Denies difficulty urinating, burning, blood in urine, urgency or frequency. MUSCULOSKELETAL: Denies neck and back pain. Denies joint pain or swelling. SKIN: Denies rash, itchiness, or lesions HEMATOLOGIC : Denies easy bruising or bleeding. LYMPHATIC: Denies swollen, painful, enlarged glands. NEUROLOGICAL: Denies no numbness or tingling denies weakness. Denies headache. Denies altered mental status. Denies alteration in speech. PSYCHIATRIC: See HPI. All other systems reviewed and negative. (LIV HDZ) Physical Exam <LIV HDZ - Last Filed: 08/13/20 18:18> - Vital signs Vitals: Temp 98.6 F 08/13/20 14:10 - Notes Notes: PHYSICAL EXAMINATION: GENERAL: Appears well, healthy, well-nourished, no acute distress. HEAD: Normocephalic, atraumatic. EYES: PERRL, conjunctiva normal, all extraocular movements intact, sclera nonicteric ENT: Moist mucous membranes. NECK: Supple, no noticeable swelling, redness, rash. Normal range of motion. LUNGS: Equal breath sounds bilaterally and clear to auscultation. No wheezes rales or rhonchi. CARDIOVASCULAR: S1-S2, regular rate, regular rhythm. Radial pulses 2+, normal. ABDOMEN: Normoactive bowel sounds. Soft, slightly tender left lower quadrant, no guarding, no rebound tenderness, and no masses palpated. EXTREMITIES: Normal strength and range of motion, no pitting or edema. No cyanosis. NEUROLOGICAL: Moves all extremities upon command. Strength 5/5 in all extremities. PSYCH: Normal mood, normal affect. SKIN: Warm, dry. No rash, lesions, ulcerations noted. Normal skin turgor. (LIV HDZ) Course - Laboratory Result Diagrams: 08/13/20 14:20 08/13/20 14:20 <ALETAKEVIN - Last Filed: 08/13/20 16:48> - Laboratory Result Diagrams: 08/13/20 14:20 08/13/20 14:20 <LIV HDZ - Last Filed: 08/13/20 18:18> - Re-evaluation Re-evalutation: 08/13/20 17:59 Hematology is unremarkable. Chemistries are also unremarkable. Urinalysis is normal. Toxicology is negative for salicylates, acetaminophen, and alcohol. Urine drug screen shows marijuana, which the patient admitted to. Awaiting gonorrhea and Chlamydia results. Brianna from [facility] has evaluated the patient they have recommended that the patient follow-up with [facility] on a voluntary basis. According to Brianna, the patient has not followed up on an outpatient basis with the resources given to him from his last visit. Patient confirms this also. Advised the patient to walk over [facility] and get properly treated and not leave AGAINST MEDICAL ADVICE. He is in agreement with this plan. Follow-up precautions were given. Verbal discharge instructions were given to the patient. They verbalized understanding. They are stable for discharge. (LUIS FELIPE HDZCELENA Cruz) - Vital Signs Vital signs: Temp Pulse Resp BP Pulse Ox 98.6 F 16 131/87 H 100 08/13/20 14:19 08/13/20 14:19 08/13/20 14:19 08/13/20 14:19 - Laboratory Laboratory results interpreted by me: 08/13/20 08/13/20 14:20 14:30 Urine Urobilinogen 2.0 H Salicylates < 1.0 L Acetaminophen < 10 L Discharge <KEVIN RIVER - Last Filed: 08/13/20 16:48> <LIV HDZ - Last Filed: 08/13/20 18:18> - Discharge Clinical Impression: Suicidal ideation, Cannabis abuse, Homelessness, History of self injurious behavior Abdominal pain Qualifiers: Abdominal location: generalized Qualified Code(s): R10.84 - Generalized abdominal pain Condition: Stable Disposition: HOME, SELF-CARE Additional Instructions: You have been seen here in the emergency department for abdominal pain. You have a moderate amount of stool in your colon. Take Colace to help with any constipation. Please walk over to [facility] on a voluntary basis to help you with your thoughts of hurting yourself. You have been evaluated by both medical and behavioral health teams for suicidal ideation with thoughts and no action, history of self injurious behavior via cutting, cannabis use, and homelessness. You have been deemed appropriate for discharge. While in the emergency department you received the following services/or had access to: Medical screening and assessment, nursing services, dietary services, pharmacological services, one-on-one counseling and/or psychotherapy, environmental services, and continuous observation by a patient safety representative. You are recommended to abstain from cannabis and other drug use use as it can cause and/or exacerbate mental health symptoms such as depression, anxiety, paranoia and other psychosis. You are encouraged to utilize resources which you have previously been provided from the emergency department. DEPRESSION: (cannabis use can increase this and other mental health symptoms)= Your evaluation reveals that you have mental depression. While symptoms may be vague, they often include disturbance of sleep, fatigue, loss of appetite, and general loss of interest in life. While depression may be a side effect of drugs, or a reaction to a major change in your life, many cases have no known cause. If depression is acute, and related to a major loss in your life, you can expect it to clear completely with time. If you have been depressed a long time, are prone to repeated bouts of depression or low mood, or have been thinking of suicide, get help. Depression can be treated with anti-depressant medication and counselling. Long-term depression will often take a few weeks to clear, even with appropriate medication. Follow-up care is important. SUICIDAL IDEATION: Suicidal ideation is a common medical term for thoughts about suicide, which may be as detailed as a formulated plan, without the suicidal act itself. Although most people who undergo suicidal ideation do not commit suicide, some go on to make suicide attempts. The range of suicidal ideation varies greatly from fleeting to detailed planning, role playing, and unsuccessful attempts. While thoughts about suicide are common, most people do not carry out serious actions to commit suicide. Based upon your evaluation and discussion with you, we do not believe you are currently at risk to act upon your thoughts of suicide. You have agreed to return to the Emergency Department, at any time, if you feel inclined to act upon your suicidal thoughts. FOLLOW-UP CARE: You gave verbal permission to voluntarily link you to [facility] however they are full today. You can do self referral to [facility] via phone call, walk in or utilization of one of the local mobile crisis teams. If you return to [facility] you must stay for the entire treatment process for it to be beneficial and then they will connect you with other resources. Their bed availability changes constantly.You are encouraged to utilize other resource previously provided and provided again this time. These include both local mobile crisis [facility], [facility] for outpatient dual diagnosis (mental health and substance abuse, walk ins are Mondays-Fridays 8:00AM-4:30PM) treatment and take self pay/no insurance, the local homeless residential and soup kitchen, as well as other food bank/residential information. If you experience worsening or a significant change in your symptoms, notify your physician immediately, utilize mobile crisis or [facility] or return to the Emergency Department at any time for re-evaluation. Prescriptions: Docusate Sodium [Colace 100 mg Capsule] 100 mg PO BID #60 capsule Referrals: [facility] [Outside] - Follow up as needed (For Crisis, Talk Therapy, and linkage to other services/supports.) [facility] [Outside] - Follow up as needed (For Crisis, Talk Therapy, and linkage to other services/supports.) [facility] [Outside] - Follow up as needed (Local Voluntary Inpatient 3-5 day facility. You can self refer via phone call ([phone]) or walk [facility] [place], [address] You can also use mobile crisis to assist you. You must stay the entire duration to benefit from the treatment.) [facility] [Provider Group] - Follow up as needed (Outpatient dual diagnosis mental health and substance abuse treatment. To initiate services walk in Sunday-Sunday 8:00AM-4:30PM.)
--- NOTE | 2020-08-13 15:57 | RADIOLOGY REPORT (SQ) ---
EXAM DESCRIPTION: KUB/ABDOMEN (SINGLE VIEW) IMAGES COMPLETED DATE/TIME: 08/13/2020 3:47 pm REASON FOR STUDY: abdominal pain COMPARISON: None. NUMBER OF VIEWS: One view. TECHNIQUE: Supine radiographic image of the abdomen acquired. LIMITATIONS: None. FINDINGS: BOWEL GAS PATTERN: Normal bowel gas pattern. No dilated loops. CALCIFICATIONS: No suspicious calcifications. SOFT TISSUES: No gross mass or suggestion of organomegaly. HARDWARE: None in the abdomen. BONES: No acute fracture. No worrisome bone lesions. OTHER: No other significant finding. IMPRESSION: NO RADIOGRAPHIC EVIDENCE FOR ACUTE ABDOMINAL DISEASE. TECHNICAL DOCUMENTATION: JOB ID: [id number] 2010 [employer]- All Rights Reserved Reading location - IP/workstation name: [email or web address]
--- NOTE | 2020-08-13 16:00 | EKG REPORT ---
SEVERITY:- OTHERWISE NORMAL ECG - SINUS RHYTHM BORDERLINE LEFT AXIS DEVIATION : Confirmed by: Kartik Barry MD 13-Aug-2020 16:00:12
[2020-08-13] MEDS ORDERED: DOCUSATE SODIUM 100 MG CAPSULE PO ONE (16:25)
[2020-08-13 19:03] LABS: CHLAM PCR NOT DETECTED (NOT DETECT)
--- NOTE | 2020-08-17 22:39 | PSYCHOLOGICAL NOTE ---
Psych Note - Psych Note Date seen by psych provider: 08/13/20 Time seen by psych provider: 16:03 - Evaluation with patient from [id number]. Psych Note: Patient is a 30 year old male who presented to the emergency department this afternoon via EMS for laying on the side of the road, sleeping, stated suicidal ideation, thoughts of cutting himself, has a history of cutting, old scars all over both arms noted in medical documentation but nothing new. Urine Drug Screen was positive for Cannabis. Note patient has been seen numerous times in the emergency department for altered mental status and being found sleeping on the side of the road. On 08/05/2020 he provided outpatient mental health resources to include voluntary inpatient, outpatient dual diagnosis mental health and substance abuse services, mobile crisis, and the economic resource sheet. At 1534 Attending Nurse noted patient was sleeping without complaint. Patient shook his head yes to having suicidal ideation with thoughts of cutting himself. He stated "I have nobody." Inquired if he followed up with any services from his 08/05/2020 visit. Specifically asked about [facility] for voluntary inpatient services, [facility] for outpatient services, the local homeless fpc, and finally if he had reached out to his [id number] who resides locally. Patient denied follow up with anything. He identified he had been staying at his [id number] and commented "they let me stay there, they have kids, i don't need to be around kids in the state I am in." Challenged patient on his comment that he has nobody when in fact his awaxrlj-ua-qik and family allowed him to stay with them and it was his (patient's choice to leave). Confronted patient that he is not going to feel better if he doesn't do his part by following up with some sort of treatment. Explained utilizing his idlljqm-av-tvce home and family as a natural support while actively participating in some sort of treatment is what could help him to feel better. He admitted to cannabis use, stated last use was "a few days ago," and when asked if he used any other substances he stated "not that I know of." Patient was alert and oriented to self, person, place, time and situation. Mood was euthymic with congruent affect. He endorsed thoughts of cutting himself, has a history of such, stated suicidal ideation with thoughts of cutting self, however did not take any action and only has old scars nothing fresh/new. He denied homicidal ideation. Patient did not appear to be responding to internal stimuli as evidenced by fair eye contact and answering questions appropriately when addressed. Thought processes were linear and organized. Conversational speech was within normal limits for rate, tone and prosody. Intellectual abilities are estimated to be average. Insight, judgment and impulse control were fair as evidenced by coming to the hospital for help however already having received appropriate resources for various treatment options (voluntary inpatient, outpatient dual diagnosis). Clinical Presentation: Suicidal Ideation History of self injurious behavior via cutting Cannabis Use Disorder Impression/Plan: Patient is cleared from acute psychiatric services. Patient endorsed thoughts of wanting to cut, has a history of cutting, has old scars but nothing fresh/new, and he has not taken action or engaged in cutting. He denied homicidal ideation. There was no observed psychosis given his ability to interact appropriately and made fair eye contact. He noted he has nobody however this clinician pointed out he does have a natural support in his xuzuvvv-[id number]-zga and his family as they allowed him to stay there. Encouraged him to utilize them as a natural support while actively getting treatment whether voluntary inpatient ([facility]) or dual diagnosis outpatient ([facility]). Explained he has to be an active participant and follow whatever program he chooses (he had previously been to [facility] 08/01/2020-08/03/2020 but left against medical advice) in order for it to be most effective. Provided patient with contact information for [facility] (noted they were full but that can change quickly and he can call, walk in or use mobile crisis for linkage), [facility] (walk ins Mondays-Fridays [id number]), both local mobile crisis centers, and the economic resource sheet (lists homeless fpc and food silvestre). Consulted with Dr. Griffith regarding the management and care of patient. ED Physician in agreement with recommendations. Case Management: At 1615 called [facility]. Spoke to Anay. No bed availability at all at that time. Bed availability changes constantly.
== END 2020-08-13 18:38 | disposition home or self-care (01) ==
LOC: ER 13:55
DX: R45.851 Suicidal ideations (principal); R10.84 Generalized abdominal pain; F12.10 Cannabis abuse, uncomplicated; F17.200 Nicotine dependence, unspecified, uncomplicated; Z59.0 Homelessness; Z91.5 Personal history of self-harm
CPT/HCPCS: 36415; 74018; 80053; 80307; 81001; 85025; 87491; 87591; 93005; 93010; 99285